=== PATIENT | female | born 1950 | race Caucasian/White ===

== ENCOUNTER → 2018-10-04 | Day surgery (SDC) | payer MEDICARE, BC ==
[2018-10-04] VITALS (8 sets, daily range): BP systolic 117–164; BP diastolic 51–77; PULSE 81–94; RESP 9–18; Ht 154.9 cm; Wt 70.3 kg
[~2018-10-04] VITALS: Ht 154.9 cm; Wt 70.3 kg
[~2018-10-04] MED LIST: ACETAMINOPHEN 325 MG TAB PO PRN; AL HYDROX/MG HYDROX/SIMETH 30 ML CUP PO PRN; AMLO-147 PO; ATOR40TA68 PO; BENA40TA56 PO; CALC1TAB93 PO; CILO50TA PO; CLOP75TA27 PO; CLOPIDOGREL 75 MG TAB ONE; DIAZEPAM 5 MG TAB PO ONE; DIPHENHYDRAMINE 50 MG CAP PO ONE; EZET1TAB10; FAMOTIDINE 20 MG TAB PO ONE; FENTAnyl 50 MCG/ML VIAL ONE; GLYB5TAB3 PO; HEPARIN 1000 UNITS/ML 10 ML INJ ONE; HYDR-3672 PO; HYDR25TA6 PO; IODIXANOL LOCM 100 ML BTL ONE; ISOS30TA67 PO; LIDOCAINE 1% (MDV) 20 ML INJ ONE; MECL-77 PO; METF850T13 PO; METO-319 PO; MIDAZOLAM 1 MG/ML 2 ML INJ ONE; NITR0.4T39 SL; NITROGLYCERIN (IC) 100 MCG/ML INJ ONE; OMEP40CA6 PO; ONDANSETRON 4 MG INJ IV PRN; PHENYLephrine (100 MCG/ML) 5ML SYG ONE; SOD CHLORIDE 0.45% 1,000 ML IV SCH; SOD CHLORIDE 0.9% 1,000 ML IV SCH; VALS320T2; VERAPAMIL 5 MG INJ ONE; [UNRECOGNIZED DRUG - CODE]; hydrALAzine 20 MG INJ ONE; morphine 2 MG INJ IV PRN
--- NOTE | 2018-10-04 12:03 | SIPON ---
Date/Time of Note Date/Time of Note DATE: 10/04/18 TIME: 12:02 Operative Report Preoperative Diagnosis 1.chest pain 2.abnl mpi Postoperative Diagnosis 1.non-obstructive cad 2.Patent LCx stent Operation/Procedure Performed 1.[facility] Surgeon see signature line visitor use assistant 1.Terry Anesthesia: moderate sedation Estimated blood loss: minimal Transfusion Required none Specimen none Grafts/Implants none Complications none BETH MCCORMICK Oct 04, 2018 12:03
--- NOTE | 2018-10-04 21:36 | CARRPT ---
DATE OF PROCEDURE: 10/04/2018 TYPE OF PROCEDURE: 1. Left heart catheterization. 2. Coronary angiography. 3. Left ventriculogram. 4. Moderate conscious sedation. ATTENDING PHYSICIAN: Dr. Beth Blanca REFERRING PHYSICIAN: Dr. Rojas INDICATION: Chest pain with positive stress test findings for ischemia, history of stent. TYPE OF ANESTHESIA: Conscious and local. BRIEF HISTORY: Ms. Sanchez is a 68-year-old female with history of hypertension, dyslipidemia, cor onary artery disease, status post prior PCI and stent placement in circumflex, who presented with com plaints of substernal chest pain and a cardiac stress test showing positive ischemia, is now referred for left heart catheterization to assess for possibility of significant obstructed coronary arteries leading to episodes of chest pain and subsequent positive stress test findings. PROCEDURE: After informed consent was obtained, patient was brought to the [facility] cardiac dye lab technician where her right radial area was prepped and draped in sterile fashion, 2% lidoca ine infiltrated into right radial area in order to achieve adequate anesthesia. Using the modified S eldinger technique, the radial artery was cannulated and a 6-Nauruan arterial sheath was placed. A 6- [place]auruan JL3.5 catheter was used to cannulate the left main coronary ostium. With contrast injection, multiple views of the left coronary system were obtained. JL3.5 guidewire and a JR4 were used to can nulate the right coronary arterial ostium. With contrast injection, multiple views of the right rah nary arterial system were obtained. JL4 guidewire and a 6-Nauruan pigtail was passed down the ascendi ng aorta and placed in LV. LVEDP was measured, 20 mL of contrast were injected by power injection an d pullback across the aortic valve to assess for significant gradient, which there was none and remov ed. Subsequently, at this time, the patient's sheath was removed. TR Band was applied and completed procedure. There were no noted complications. FINDINGS: Coronary angiography: Left main 4.5 mm with a distal 20% stenosis. Circumflex proximally is a 3 mm vessel. In its midportion, it is a widely patent stent with no significant in-stent restenosis. The re is a mid-branch obtuse marginal 3 mm with no significant focal stenoses. It is a dominant vessel and therefore gives off a left-sided PDA. A 2 mm vessel with no significant focal stenoses. The LAD proximally is a 2.5 mm vessel. In its proximal portion has a 20% stenosis and its midportion has a 20% to 30% stenosis. Remainder of the LAD is free from focal stenoses. There are 2 mid branching di agonals, each sub 2 mm vessels, with no significant focal stenoses. The patient's right coronary art teresa is a nondominant vessel, proximally is 2 mm, has no significant focal stenoses. Left ventriculogram revealed a left ventricular ejection fraction of 60% to 65%. Left end diastolic pressure of 18 pre-LV gram, 20 post-LV gram. TOTAL FLUOROSCOPY TIME: 6.3 minutes. TOTAL CONTRAST: 95 mL. IMPRESSION: 1. [id number]-[id number] nonobstructive coronary artery disease. 2. Widely patent circumflex stents. 3. Preserved left ventricular systolic function. 4. High to mildly elevated left heart filling pressure. 5. No significant aortic systolic gradient. 6. 1+ mitral regurgitation. RECOMMENDATIONS: In light of procedure and findings at this time would: 1. Maximize medical management. 2. Aggressive risk factor reduction. 3. The patient will be readmitted to same day surgery center for post-cath observation and continued management of symptoms with probable discharge the following day. Dictated By: BETH MARQUEZ/RAFITA Conf#: [id number] DID#: [id number] CC: Dr. Rojas;*End*
--- NOTE | 2018-10-06 13:36 | RADRPT ---
Vent Rate: 86 bpm RR Interval: 0 msec NC Interval: 160 msec QRS Duration: 92 msec QT Interval: 392 msec QTC Interval: 469 msec P-R-T Bally: 45 - 31 - 28 degrees Normal sinus rhythm Incomplete right bundle branch block Borderline ECG Electronically Signed By: James Blanca
== END | disposition home or self-care (01) ==
LOC: SDS 09:14
PROVIDERS: ATTEND Internal Medicine
DX: I25.10 Atherosclerotic heart disease of native coronary artery without angina pectoris (principal); I10 Essential (primary) hypertension; E78.5 Hyperlipidemia, unspecified
CPT/HCPCS: 71045; 80053; 80061; 82962; 85025; 85610; 85730; 93005; 93458; C1887; J0360; J1644; J2250; J2405; J3010; Q9967; J2370